=== PATIENT | female | born 1945 | race Caucasian/White ===

== ENCOUNTER 2019-07-14 11:43 | Day surgery (SDC) | payer MEDICARE ==
[~2019-07-14] VITALS: Ht 165.1 cm; Wt 90.5 kg
[~2019-07-14 11:43] MED LIST: ASCO500 PO; ASPI325 PO; COROMEGA 3 + D2.5 GM PO; D3-20002000 UNIT PO; DILT120 PO; IRBE150 PO; LISI5 PO; LOSARTAN POTAS100 MG PO; OMEP20ER PO; PANT40 PO
[2019-07-14] MEDS ORDERED: PANT40 (12:00)
[2019-07-14] MEDS ORDERED: ATEN25 (12:00)
--- NOTE | 2019-07-14 15:10 | NUR ---
07/14/19 1510 Roya Cage 8ML NACL USED FOR POLYP REMOVAL
== END 2019-07-14 15:05 | disposition home or self-care (01) ==
LOC: ORSCSDS 11:43
PROVIDERS: Internal Medicine Gastroenterology
PROC: 0DBL8ZX Excision of Transverse Colon, Via Natural or Artificial Opening Endoscopic, Diagnostic (ICD-10-PCS; principal; 2019-07-14 13:00)
PROC: 0D758ZZ Dilation of Esophagus, Via Natural or Artificial Opening Endoscopic (ICD-10-PCS; principal; 2019-07-14 13:00)
PROC: 0DBM8ZX Excision of Descending Colon, Via Natural or Artificial Opening Endoscopic, Diagnostic (ICD-10-PCS; principal; 2019-07-14 13:00)
PROC: 0DBK8ZX Excision of Ascending Colon, Via Natural or Artificial Opening Endoscopic, Diagnostic (ICD-10-PCS; principal; 2019-07-14 13:00)
DX: Z12.11 Encounter for screening for malignant neoplasm of colon (principal); Z86.010 Personal history of colon polyps; Z80.0 Family history of malignant neoplasm of digestive organs; D12.2 Benign neoplasm of ascending colon; D12.3 Benign neoplasm of transverse colon; D12.4 Benign neoplasm of descending colon; K62.1 Rectal polyp; K52.9 Noninfective gastroenteritis and colitis, unspecified; K21.9 Gastro-esophageal reflux disease without esophagitis; R13.19 Other dysphagia; K22.2 Esophageal obstruction; I10 Essential (primary) hypertension; E78.5 Hyperlipidemia, unspecified; G47.33 Obstructive sleep apnea (adult) (pediatric); Z79.899 Other long term (current) drug therapy
CPT/HCPCS: 88305; J0360; J2250; J2704; J7120

== ENCOUNTER → 2020-06-26 | Outpatient (CLI) | payer MEDICARE ==
[~2020-06-26] MED LIST changes: +ATEN25; +PANT40
== END | disposition home or self-care (01) ==
LOC: PLD 14:29 → LAB SHORT 14:29
DX: D48.5 Neoplasm of uncertain behavior of skin (principal)
CPT/HCPCS: 88305

== ENCOUNTER → 2021-12-25 | Outpatient (CLI) | payer MEDICARE | END | disposition home or self-care (01) | LOC: LAB SHORT 11:00 → LAB 11:00 | DX: L82.1 Other seborrheic keratosis (principal) | CPT/HCPCS: 88305 ==

== ENCOUNTER → 2022-01-27 | Outpatient (CLI) | payer MEDICARE | END | disposition home or self-care (01) | LOC: LAB 08:17 → PLD 08:17 → LAB SHORT 08:17 | DX: C44.622 Squamous cell carcinoma of skin of right upper limb, including shoulder (principal) | CPT/HCPCS: 88305 ==

== ENCOUNTER → 2023-08-23 | Outpatient (CLI) | payer MEDICARE | END | disposition home or self-care (01) | LOC: LAB SHORT 15:53 → LAB 15:53 | DX: I10 Essential (primary) hypertension (principal) | CPT/HCPCS: 84443 ==

== ENCOUNTER 2024-03-27 05:44 | Day surgery (SDC) | payer MEDICARE ==
[~2024-03-27] VITALS: Ht 167.6 cm; Wt 94.5 kg
[~2024-03-27 05:44] MED LIST changes: +GABA400 PO; +HYDCHL25 PO; +IRBE150; +METF500 PO
[2024-03-27] MEDS ORDERED: Lactated Ringer's 1,000 ML IV SCH (06:10)
[2024-03-27 06:42] VITALS: BP 157/80
--- NOTE | 2024-03-27 07:01 | NUR ---
History, Chart, Medications and Allergies reviewed before start of procedure. Pre-Op teaching done. Pt verbalizes understanding. Patient States Post-Procedure ride home has been arranged WITH MADIE. Ambulatory in Day Surgery WITH STEADY GAIT. SPOUSE AT BEDSIDE. BELONGINGS PLACED IN BAG AND LEFT IN BAY.
[2024-03-27] MEDS ORDERED: propofoL 60 ML IV ONE (07:15)
--- NOTE | 2024-03-27 07:37 | NUR ---
03/27/24 0737 Sisi Tang MONITOR INTACT WITH CONTINUOUS PULSE OXIMETRY, CONTINUOUS END TITAL CO2, AND INTERMITTENT BLOOD PRESSURE.
[2024-03-27 08:02] VITALS: BP 122/82
[2024-03-27 08:17] VITALS: BP 134/78
== END 2024-03-27 08:25 | disposition home or self-care (01) ==
LOC: ORSCMMR 05:44 → ORD 07:30 → ORSCMMR 07:30
PROVIDERS: Internal Medicine Gastroenterology
PROC: 0DBP8ZX Excision of Rectum, Via Natural or Artificial Opening Endoscopic, Diagnostic (ICD-10-PCS; principal; 2024-03-27 07:30)
PROC: 0DBN8ZX Excision of Sigmoid Colon, Via Natural or Artificial Opening Endoscopic, Diagnostic (ICD-10-PCS; principal; 2024-03-27 07:30)
PROC: 0DBK8ZX Excision of Ascending Colon, Via Natural or Artificial Opening Endoscopic, Diagnostic (ICD-10-PCS; principal; 2024-03-27 07:30)
PROC: 0DBL8ZX Excision of Transverse Colon, Via Natural or Artificial Opening Endoscopic, Diagnostic (ICD-10-PCS; principal; 2024-03-27 07:30)
PROC: 0DBH8ZX Excision of Cecum, Via Natural or Artificial Opening Endoscopic, Diagnostic (ICD-10-PCS; principal; 2024-03-27 07:30)
DX: Z12.11 Encounter for screening for malignant neoplasm of colon (principal); Z86.010 Personal history of colon polyps; D12.0 Benign neoplasm of cecum; D12.3 Benign neoplasm of transverse colon; K63.5 Polyp of colon; K62.1 Rectal polyp; D17.79 Benign lipomatous neoplasm of other sites; I10 Essential (primary) hypertension; G47.33 Obstructive sleep apnea (adult) (pediatric); K21.9 Gastro-esophageal reflux disease without esophagitis; E11.9 Type 2 diabetes mellitus without complications; Z79.84 Long term (current) use of oral hypoglycemic drugs; Z79.899 Other long term (current) drug therapy
CPT/HCPCS: 82947; 88305; J2704; J7120

== ENCOUNTER → 2024-07-17 | Outpatient (CLI) | payer MEDICARE ==
[2024-07-17 16:58] LABS: Cholesterol 182 mg/dL (50-200); HDL Cholesterol 45 mg/dL (>39); LDL/HDL RATIO 2.1; Low Density Lipoprotein Chol 93 mg/dL (0-110); Triglycerides 220 mg/dL (30-160); Very Low Density Lipoprot Chol 44 mg/dL (6-32)
== END ==
LOC: LAB 14:54 → LAB SHORT 14:54
PROVIDERS: Student in an Organized Health Care Education/Training Program
DX: I10 Essential (primary) hypertension (principal)
CPT/HCPCS: 80061

== ENCOUNTER 2024-11-24 09:21 | Day surgery (SDC) | payer MEDICARE ==
[~2024-11-24] VITALS: Ht 170.2 cm; Wt 94.4 kg
[~2024-11-24 09:21] MED LIST changes: +Lactated Ringer's 1,000 ML IV ONE
[2024-11-24] MEDS ORDERED: AMLO5 PO (10:12)
[2024-11-24] MEDS ORDERED: Midazolam HCl 1MG / ML 2ML Vial ONE (10:33)
[2024-11-24] MEDS ORDERED: Lactated Ringer's 1,000 ML IV ONE (10:37)
[2024-11-24] MEDS ORDERED: CeFAZolin Sodium 2,000 MG VIAL ONE (10:39)
--- NOTE | 2024-11-24 10:57 | NUR ---
11/24/24 1057 Patel Saunders DONE BY DR SOLORZANO AT AT 1050. TIMEOUT DONE PRIOR TO BLOCK BY [facility].JESSICA. PT TOLERATED WELL.
[2024-11-24] MEDS ORDERED: FentaNYL Citrate 50 MCG/ML 2 ML Injection ONE (11:01)
[2024-11-24] MEDS ORDERED: Ondansetron HCl 2 MG / ML 2ML Vial ONE (11:04)
--- NOTE | 2024-11-24 11:35 | NUR ---
11/24/24 Jayy5 Ursula Rodgers PT ARRIVES TO SDU A&O, VSS, ON RA. PT DENIES PAIN/NAUSEA. NO VISIBLE SIGNS OF DISTRESS NOTED.
[2024-11-24 11:36] VITALS: BP 131/67
== END 2024-11-24 12:28 | disposition home or self-care (01) ==
LOC: ORSCSDS 09:21
PROVIDERS: Orthopaedic Surgery
PROC: 01N50ZZ Release Median Nerve, Open Approach (ICD-10-PCS; principal; 2024-11-24 11:00)
DX: G56.01 Carpal tunnel syndrome, right upper limb (principal); I10 Essential (primary) hypertension; G47.33 Obstructive sleep apnea (adult) (pediatric); E11.9 Type 2 diabetes mellitus without complications; K21.9 Gastro-esophageal reflux disease without esophagitis; Z79.899 Other long term (current) drug therapy; Z79.84 Long term (current) use of oral hypoglycemic drugs
CPT/HCPCS: 82947; J0690; J2250; J2405; J3010; J7120